=== PATIENT | male | born 1995 | race African-American/Black ===

== ENCOUNTER 2022-09-10 09:46 | Emergency (ER) | payer SELFPAY ==
[2022-09-10 12:16] LABS: Bilirubin Neg (Negative); Blood, Urine Negative (Negative); Clarity Clear (Clear); Glucose, Urine (Dipstick) Normal (Negative); Ketone, Urine Negative (Negative); Leukocyte Negative (Negative); Nitrite Negative (Negative); Protein, Urine (Dipstick) Negative (Neg-Trace); Urobilinogen Normal mg/dL (Less than 2)
[2022-09-10 12:33] LABS: CAUTI Indications for Culture Pelvic or flank pain; WBC/HPF 0-3 HPF (0-3)
[2022-09-10 12:34] LABS: Bacteria/HPF Rare-Few HPF (None Seen); Squamous Epithelial 0-3 HPF (0-3)
[2022-09-10 12:35] LABS: Urine Culture Reflex No No
== END 2022-09-10 12:23 | disposition home or self-care (01) ==
LOC: CSHERS 09:46
DX: N45.1 Epididymitis (principal); F17.210 Nicotine dependence, cigarettes, uncomplicated
CPT/HCPCS: 76870; 81001; 93976